=== PATIENT | female | born 1935 | race Two or more races ===

== ENCOUNTER 2024-03-16 14:44 | Inpatient (IN) | payer OTHER ==
[~2024-03-16] VITALS: Ht 167.6 cm; Wt 72.6 kg
[2024-03-16] MEDS ORDERED: LEVALBUTEROL HCL 1.25 MG/3 ML SOLUTION IH STA (15:57)
[2024-03-16] MEDS ORDERED: BUDESONIDE 0.5 MG/2 ML AMPUL.NEB IH STA (15:57)
[2024-03-16] MEDS ORDERED: 0.9 % SODIUM CHLORIDE 1,000 ML IV STA (15:57)
[2024-03-16] MEDS ORDERED: METHYLPREDNISOLONE SOD SUCC 125 MG VIAL IV STA (15:58)
[2024-03-16 16:29] LABS: HEMATOCRIT 38.4 % (36.0-45.00); HEMOGLOBIN 12.8 g/dL (12.0-15.00); MEAN CELL VOLUME 84.2 fL (80.00-100.00); MEAN CORPUSCULAR HEMOGLOBIN 28.1 pg (27.00-32.0); MEAN CORPUSCULAR HGB CONC 33.4 g/dl (32.0-36.0); PLATELET COUNT 200 K/uL (150-450); RED BLOOD COUNT 4.56 M/uL (4.00-6.00); RED CELL DISTRIBUTION WIDTH 17.1 % (11.5-14.5)
[2024-03-16 16:47] LABS: CALCIUM 9.4 mg/dL (8.5-10.1); CREATININE SERUM 0.87 mg/dL (0.55-1.02); GFR 61.45; POTASSIUM 4.3 mEq/L (3.5-5.1)
[2024-03-16] MEDS ORDERED: APIXABAN 5 MG TABLET PO SCH (20:53)
[2024-03-16 21:52] LABS: INR 1.09; PARTIAL THROMBOPLASTIN TIME 29.7 SECONDS (22.0-34.0); PROTHROMBIN TIME 11.4 SECONDS (9.0-11.5)
[2024-03-16 21:56] LABS: CHOL HDL RATIO 2.2 (0-5.0)
[2024-03-17] MEDS ORDERED: AZITHROMYCIN 250 MG TABLET PO SCH (09:00)
[2024-03-17] MEDS ORDERED: FUROSEMIDE 10 MG/ML IV SCH (09:00)
[2024-03-17] MEDS ORDERED: BUDESONIDE 0.5 MG/2 ML AMPUL.NEB IH SCH (09:00)
[2024-03-17] MEDS ORDERED: FAMOtidine 20 MG TABLET PO SCH (09:00)
[2024-03-17] MEDS ORDERED: METOPROLOL TARTRATE 50 MG TABLET PO SCH (09:00)
[2024-03-17] MEDS ORDERED: LEVALBUTEROL HCL 1.25 MG/3 ML SOLUTION IH SCH (09:00)
[2024-03-17] MEDS ORDERED: CEFTRIAXONE SODIUM 2,000 MG in 0.9 % SODIUM CHLORIDE 100 ML IV SCH (17:27)
[2024-03-18 17:48] LABS: PLEURAL FLUID APPEARANCE CLOUDY; PLEURAL FLUID COLOR YELLOW
[2024-03-18 18:10] LABS: TP PLEURAL FLUID 2.6 g/dl
[2024-03-18 19:06] LABS: MONONUCLEAR 97 %; POLYMORPHONUCLEAR 3 %
[2024-03-18 22:46] LABS: CALCIUM 8.3 mg/dL (8.5-10.1); CREATININE SERUM 0.66 mg/dL (0.55-1.02); GFR 84.32; POTASSIUM 3.85 mEq/L (3.5-5.1)
[2024-03-19] MEDS ORDERED: IPRATROPIUM BROMIDE 0.5 MG/2.5 ML AMPUL.NEB IH SCH (09:52)
[2024-03-19] MEDS ORDERED: CEFTRIAXONE SODIUM 2,000 MG VIAL ONE (10:56)
[2024-03-19] MEDS ORDERED: ENOXAPARIN SODIUM 60 MG/0.6 ML SYRINGE SUBCUTANEO SCH (21:00)
[2024-03-20] MEDS ORDERED: APIXABAN 5 MG TABLET PO SCH (09:00)
[2024-03-20] MEDS ORDERED: FUROsemide 20 MG/2 ML VIAL IV SCH (17:00)
[2024-03-21] MEDS ORDERED: FUROsemide 20 MG/2 ML VIAL IV SCH (21:00)
[2024-03-22 11:30] LABS: ABG PH 7.488 (7.35-7.45); ABG pCO2 38.5 mmHg (35-45)
[2024-03-22 11:31] LABS: ABG PO2 70.1 mmHg (80-100); BICARBONATE 28.6 mmol/l (23-25); SaO2 95.5 %; Tco2 29.7 mmol/l; allen test SATISFACTORY; o2 21 %; puncture site RADIAL LEFT
== END 2024-03-24 11:14 | disposition home or self-care (01) | DRG 187 ==
LOC: ER 14:44 → MEDJ 21:14 → SEC-K 21:14 → SURH 03-17 00:47 → MEDJ 03-17 00:48
PROVIDERS: General Practice; Radiology Vascular & Interventional Radiology; Student in an Organized Health Care Education/Training Program; ADMIT Internal Medicine; ATTEND Internal Medicine
PROC: BW24ZZZ Computerized Tomography (CT Scan) of Chest and Abdomen (ICD-10-PCS; 2024-03-16)
PROC: 4A12X4Z Monitoring of Cardiac Electrical Activity, External Approach (ICD-10-PCS; 2024-03-17)
PROC: 0W993ZX Drainage of Right Pleural Cavity, Percutaneous Approach, Diagnostic (ICD-10-PCS; principal; 2024-03-18)
PROC: B24BZZZ Ultrasonography of Heart with Aorta (ICD-10-PCS; 2024-03-21)
DX: J90 Pleural effusion, not elsewhere classified (principal); I50.30 Unspecified diastolic (congestive) heart failure; J98.11 Atelectasis; I48.91 Unspecified atrial fibrillation; J45.909 Unspecified asthma, uncomplicated; I11.0 Hypertensive heart disease with heart failure; Z87.01 Personal history of pneumonia (recurrent)